=== PATIENT | male | born 1975 | race Two or more races ===

== ENCOUNTER 2020-08-22 02:32 | Inpatient (IN) | payer BC, OTHER ==
[~2020-08-22] VITALS: Ht 190.5 cm; Wt 114.3 kg
[2020-08-22 04:29] LABS: Calcium 8.3 mg/dL (8.5-10.1); Potassium 3.6 mmol/L (3.5-5.1)
[2020-08-22 04:38] LABS: Albumin 3.4 g/dL (3.4-5.0); BUN/Creatinine Ratio 9.9; Bilirubin, Total 0.5 mg/dL (0.2-1.0); Total Protein 7.3 g/dL (6.4-8.2)
[2020-08-22 04:41] LABS: Basophils # (auto) 0.1 10 ^3/uL (0-0.2); Basophils % (auto) 0.8 % (0.0-2.0); Eosinophils # (auto) 0.2 10 ^3/uL (0-0.8); Eosinophils % (auto) 2.4 % (0.0-7.0); Hemoglobin 17.7 g/dL (13.5-17.5); Lymphocytes # (auto) 2.9 10 ^3/uL (0.4-5.4); Lymphocytes % (auto) 36.7 % (10.0-50.0); Mean Corpuscular Hgb Conc. 34.8 g/dL (32.0-36.0); Mean Corpuscular Volume 94.7 fL (80.0-100.0); Monocytes # (auto) 0.6 10 ^3/uL (0-1.3); Monocytes % (auto) 7.4 % (0.0-12.0); Neutrophils # (auto) 4.1 10 ^3/uL (1.6-8.6); Neutrophils % (auto) 52.7 % (37.0-80.0); Nucleated Red Blood Cells % 0.1 %; Platelet Count (auto) 227 10^3/uL (140-450); Red Blood Cells 5.38 10^6/uL (4.5-5.90); Red Cell Distribution Width 12.8 % (11.8-14.3); White Blood Cell 7.8 10^3/uL (4.4-10.8)
[2020-08-22 04:59] LABS: Urine Bacteria FEW /hpf (None Seen); Urine Blood TRACE /uL (Negative); Urine Specific Gravity 1.003 (1.001-1.035); Urine WBC 1 /hpf (0 - 3)
[2020-08-22] MEDS ORDERED: NITROGLYCERIN 0.2MG/HR TOPICAL PATCH TD ONE (05:15)
[2020-08-22] MEDS ORDERED: CLOPIDOGREL 300 MG TAB PO ONE (05:15)
[2020-08-22] MEDS ORDERED: ASPirin 81 mg TAB PO ONE (05:15)
[2020-08-22] MEDS ORDERED: ENOXAPARIN SOD 120 MG/0.8 ML SYRINGE SC ONE (05:30)
[2020-08-22 07:30] LABS: INR 0.97 (0.9-1.15); Partial Thromboplastin Time 29.1 sec (23.0-31.2)
[2020-08-22] MEDS ORDERED: NITROGLYCERIN 0.4 MG SL TAB SL PRN (09:30)
[2020-08-22] MEDS ORDERED: hydrALAZINE HCL 20 MG/ML VL IV PRN (09:30)
[2020-08-22] MEDS ORDERED: MORPHINE SULF INJ 2 MG/ML SYRINGE 1ML IV PRN ×2 (09:30)
[2020-08-22] MEDS ORDERED: ONDANSETRON HCL 4 MG/2 ML VIAL IV PRN (09:30)
[2020-08-22] MEDS ORDERED: ACETAMINOPHEN 500 MG TAB PO PRN (09:30)
[2020-08-22] MEDS ORDERED: HYDROcodone-ACET 5/325MG TAB PO PRN (09:30)
[2020-08-22] MEDS ORDERED: FAMOTIDINE 20 MG TAB PO SCH (10:00)
[2020-08-22] MEDS ORDERED: METOPROLOL TARTRATE 25 MG TAB PO SCH (10:00)
[2020-08-22] MEDS ORDERED: ASPirin-EC 81 mg tab PO SCH (10:00)
[2020-08-22] MEDS ORDERED: LISINOPRIL 10 MG TAB PO SCH (10:00)
--- NOTE | 2020-08-22 10:35 | NUR ---
Telemetry admit from ER ANALIA JONAS admitted to Telemetry unit after SBAR received. Patient oriented to CARMELITA BAILEY RN primary RN, unit, room, bed, and unit policies regarding patient care and visiting hours. Patient now on continuous telemetry monitoring, tele box # 70 and telemetry reading on arrival to unit is ST. Patient weighed by bedscale and encouraged to call if they need something. All questions and concerns addressed, patient verbalized understanding.
[2020-08-22 10:36] VITALS: BP 161/101
--- NOTE | 2020-08-22 11:30 | NUR ---
Troponin Ptient trop elevated. Notified Narinder. MD Barcenas place orders for heart cath tomorrow.
[2020-08-22 13:00] VITALS: BP 154/100
[2020-08-22 16:41] VITALS: BP 142/87
--- NOTE | 2020-08-22 16:47 | NUR ---
AMA Patient signed out AMA. Explained risks about leaving against medical advise. Patient stated "its my daughters last day in town and if I don't see her today, I don't know when I will be able to see her." Patient verbalized understanding. Notified MD Barcenas and BEAU Eddy.
[2020-08-22] MEDS ORDERED: ENOXAPARIN SOD 100 MG/1 ML SYRINGE SC ONE (22:00)
[2020-08-22] MEDS ORDERED: ATORVASTATIN 20 MG TAB PO SCH (22:00)
[2020-08-23] MEDS ORDERED: CLOPIDOGREL BISULFATE 75 MG TAB PO SCH (10:00)
== END 2020-08-22 16:40 | disposition left against medical advice (07) | DRG 281 ==
LOC: ER 02:32 → TELE 02:33 → TELE-WESTW 10:35
PROVIDERS: ADMIT Nurse Practitioner Acute Care; ATTEND Nurse Practitioner Acute Care
DX: I21.4 Non-ST elevation (NSTEMI) myocardial infarction (principal); E87.1 Hypo-osmolality and hyponatremia; I10 Essential (primary) hypertension; I20.0 Unstable angina; E66.9 Obesity, unspecified; Z88.0 Allergy status to penicillin; Z68.31 Body mass index [BMI] 31.0-31.9, adult; F17.210 Nicotine dependence, cigarettes, uncomplicated; D75.1 Secondary polycythemia; I07.1 Rheumatic tricuspid insufficiency
CPT/HCPCS: 36415; 71045; 80053; 81001; 83735; 83880; 84484; 85025; 85379; 85610; 85730; 86141; 93306; G0378

== ENCOUNTER 2024-05-14 20:24 | Inpatient (IN) | payer BC ==
[~2024-05-14] VITALS: Ht 190.5 cm; Wt 112.2 kg
[2024-05-14 21:00] LABS: Basophils # (auto) 0.1 10 ^3/uL (0-0.2); Basophils % (auto) 1.2 % (0.0-2.0); Eosinophils # (auto) 0.1 10 ^3/uL (0-0.8); Eosinophils % (auto) 1.9 % (0.0-7.0); Hematocrit 49.7 % (41.0-53.0); Hemoglobin 17.3 g/dL (13.5-17.5); Mean Corpuscular Hgb Conc. 34.8 g/dL (32.0-36.0); Mean Corpuscular Volume 94.6 fL (80.0-100.0); Monocytes # (auto) 0.6 10 ^3/uL (0-1.3); Monocytes % (auto) 7.9 % (0.0-12.0); Neutrophils # (auto) 4.6 10 ^3/uL (1.6-8.6); Nucleated Red Blood Cells % 0.2 %; Red Blood Cells 5.25 10^6/uL (4.5-5.90); Red Cell Distribution Width 13.2 % (11.8-14.3); White Blood Cell 7.4 10^3/uL (4.4-10.8)
[2024-05-14 21:06] LABS: Chloride 106 mmol/L (98-107); Potassium 4.4 mmol/L (3.5-5.1); Sodium 137 mmol/L (136-145)
[2024-05-14 21:07] LABS: Anion Gap 7 (5-15); Calcium 9.3 mg/dL (8.7-10.4); Carbon Dioxide 24 mmol/L (20-30)
[2024-05-14 21:12] LABS: BUN/Creatinine Ratio 7.2 (10.0-20.0); Blood Urea Nitrogen 12 mg/dL (9-23); Glucose 160 mg/dL (74-106)
[2024-05-14 21:46] VITALS: PULSE 99; RESP 17; O2SAT 95
[2024-05-14] MEDS: FUROSEMIDE 40 MG/4 ML VIAL IV ONE (23:40)
[2024-05-14] MEDS ORDERED: NITROGLYCERIN 0.4 MG SL TAB SL PRN (23:45)
[2024-05-14] MEDS ORDERED: ONDANSETRON HCL 4 MG/2 ML VIAL IV PRN (23:45)
[2024-05-14] MEDS ORDERED: MORPHINE SULFATE INJ 2 MG/ml SYRG IV PRN (23:45)
[2024-05-14] MEDS ORDERED: ACETAMINOPHEN 325 MG TAB PO PRN (23:45)
[2024-05-14] MEDS ORDERED: HYDROcodone-ACET 5/325MG TAB PO PRN (23:45)
[2024-05-14] MEDS ORDERED: DOCUSATE SOD 100 MG CAP PO PRN (23:45)
[2024-05-15] VITALS (7 sets, daily range): BP systolic 133–150; BP diastolic 81–95; PULSE 76–105; RESP 18–20; TEMP 97.8–98.5; O2SAT 93–96
[2024-05-15] MEDS: hydrALAZINE HCL 20 MG/ML VL IV PRN (01:31)
[2024-05-15 04:21] LABS: Basophils # (auto) 0.1 10 ^3/uL (0-0.2); Eosinophils # (auto) 0.1 10 ^3/uL (0-0.8); Eosinophils % (auto) 1.1 % (0.0-7.0); Hemoglobin 19.8 g/dL (13.5-17.5); Mean Corpuscular Hemoglobin 33.4 pg (28.0-32.0); Red Cell Distribution Width 13.3 % (11.8-14.3); White Blood Cell 8.5 10^3/uL (4.4-10.8)
[2024-05-15 04:25] LABS: Lymphocytes # (auto) 2.5 10 ^3/uL (0.4-5.4); Lymphocytes % (auto) 28.8 % (10.0-50.0); Mean Corpuscular Volume 95.2 fL (80.0-100.0); Monocytes # (auto) 0.6 10 ^3/uL (0-1.3); Monocytes % (auto) 7.4 % (0.0-12.0); Neutrophils # (auto) 5.3 10 ^3/uL (1.6-8.6); Neutrophils % (auto) 61.7 % (37.0-80.0); Red Blood Cells 5.93 10^6/uL (4.5-5.90)
[2024-05-15 04:47] LABS: Hematocrit 56.4 % (41.0-53.0)
[2024-05-15 04:54] LABS: Alanine Aminotransferase 23 U/L (7-40); Albumin 4.5 g/dL (3.2-4.8); Alkaline Phosphatase 81 U/L (46-116); Anion Gap 7 (5-15); Aspartate Aminotransferase 15 U/L (13-40); BUN/Creatinine Ratio 7.7 (10.0-20.0); Blood Urea Nitrogen 13 mg/dL (9-23); Calcium 10.1 mg/dL (8.7-10.4); Carbon Dioxide 26 mmol/L (20-30); Chloride 106 mmol/L (98-107); Glucose 141 mg/dL (74-106); Sodium 139 mmol/L (136-145)
[2024-05-15 04:55] LABS: Bilirubin, Total 0.9 mg/dL (0.2-1.0); Total Protein 7.6 g/dL (5.7-8.2)
[2024-05-15 04:55] LABS: Urine Bacteria FEW /hpf (None Seen); Urine Blood TRACE /uL (Negative); Urine Clarity Clear (Clear); Urine Color Colorless (Yellow); Urine Protein, UAD 1+ (Negative); Urine Specific Gravity 1.005 (1.001-1.035); Urine Urobilinogen Normal (Negative); Urine WBC <1 /hpf (0 - 3); Urine pH 5.5 (5.0-9.0)
[2024-05-15] MEDS: SODIUM CHLOR 0.9% PF (SALINE LOCK) 10ML VIAL/SYR IV SCH (06:10)
[2024-05-15] MEDS: FUROSEMIDE 40 MG/4 ML VIAL IV SCH (09:17)
[2024-05-15] MEDS: ASPirin 81 mg TAB PO SCH (10:00)
[2024-05-15 10:02] LABS: Triglycerides 239 mg/dL (< 150)
[2024-05-15 10:03] LABS: LDL Cholesterol 170 mg/dL (< 100)
[2024-05-15 10:04] LABS: Cholesterol 236 mg/dL (< 200); HDL Cholesterol 40 mg/dL (40-59)
[2024-05-15 10:05] LABS: Sodium Urine 120 mmol/L (40-220)
[2024-05-15 10:10] LABS: Protein, Urine 69.7 mg/dL (0.0-11.9)
[2024-05-15 10:11] LABS: Amphetamine Screen, Urine Neg (NEGATIVE); Barbiturate Scree,Urine Neg (NEGATIVE); Benzodiazephine Screen, Urine Neg (NEGATIVE); Cocaine Screen, Urine Neg (NEGATIVE); Opiate Scree,Urine Neg (NEGATIVE); Phencyclidine Screen, Urine Neg (NEGATIVE)
[2024-05-15 10:12] LABS: Cannabinoid Screen, Urine Neg (NEGATIVE); Creatinine, Urine 15.54 mg/dL (30.0-125.0)
[2024-05-15 10:13] LABS: Creatinine, Urine 15.56 mg/dL (30.0-125.0); Urine Protein/Creatinine Ratio 4.48
[2024-05-15] MEDS: ASPirin 81 mg TAB PO ONE (13:01)
[2024-05-15] MEDS: METOPROLOL TARTRATE 25 MG TAB PO ONE (13:02)
[2024-05-15] MEDS: LOSARTAN POTASSIUM 25 MG TAB PO SCH (13:02)
[2024-05-15] MEDS: ATORVASTATIN 20 MG TAB PO SCH (21:15)
[2024-05-15] MEDS: METOPROLOL TARTRATE 25 MG TAB PO SCH (21:15)
[2024-05-16 01:00] VITALS: BP 147/99; PULSE 90; RESP 20; TEMP 98.5; O2SAT 96
[2024-05-16 05:00] VITALS: BP 146/91; PULSE 92; RESP 18; TEMP 98.4; O2SAT 98
[2024-05-16 05:30] LABS: Calcium 9.4 mg/dL (8.7-10.4); Chloride 106 mmol/L (98-107); Potassium 3.7 mmol/L (3.5-5.1); Sodium 138 mmol/L (136-145)
[2024-05-16 05:31] LABS: Anion Gap 6 (5-15); Carbon Dioxide 26 mmol/L (20-30)
[2024-05-16 05:36] LABS: BUN/Creatinine Ratio 9.9 (10.0-20.0); Blood Urea Nitrogen 16 mg/dL (9-23); Glucose 130 mg/dL (74-106)
[2024-05-16 08:00] VITALS: PULSE 100; PULSE 107
[2024-05-16 09:00] VITALS: BP 140/85; PULSE 100; RESP 17; TEMP 97.7; O2SAT 98
[2024-05-16] MEDS: LOSARTAN POTASSIUM 25 MG TAB PO SCH (10:18)
[2024-05-16] MEDS: EMPAGLIFLOZIN 10 MG TAB PO SCH (10:18)
== END 2024-05-16 14:14 | disposition left against medical advice (07) | DRG 280 ==
LOC: EDBD 20:24 → ER 20:24 → TELE 23:41 → TELE-WESTW 05-15 05:15
PROVIDERS: ADMIT Internal Medicine Geriatric Medicine; ATTEND Emergency Medicine
DX: I21.4 Non-ST elevation (NSTEMI) myocardial infarction (principal); I50.23 Acute on chronic systolic (congestive) heart failure; J96.01 Acute respiratory failure with hypoxia; I13.0 Hypertensive heart and chronic kidney disease with heart failure and stage 1 through stage 4 chronic kidney disease, or unspecified chronic kidney disease; N17.9 Acute kidney failure, unspecified; E11.22 Type 2 diabetes mellitus with diabetic chronic kidney disease; E11.65 Type 2 diabetes mellitus with hyperglycemia; E78.5 Hyperlipidemia, unspecified; F17.200 Nicotine dependence, unspecified, uncomplicated; T67.5XXA Heat exhaustion, unspecified, initial encounter; N18.9 Chronic kidney disease, unspecified; Z53.29 Procedure and treatment not carried out because of patient's decision for other reasons; Z88.0 Allergy status to penicillin; Z82.49 Family history of ischemic heart disease and other diseases of the circulatory system; Z71.6 Tobacco abuse counseling; Y93.89 Activity, other specified; Y92.89 Other specified places as the place of occurrence of the external cause; Y99.8 Other external cause status; X30.XXXA Exposure to excessive natural heat, initial encounter
CPT/HCPCS: 36415; 71045; 76775; 80048; 80053; 80061; 80307; 81001; 82306; 82570; 83036; 83880; 83935; 84153; 84156; 84300; 84443; 84484; 85025; 93005; 93306; 96374; 96375; G0378